=== PATIENT | male | born 1960 | race Caucasian/White ===

== ENCOUNTER → 2024-04-29 08:27 | Day surgery (SDC) | payer BC, SELFPAY ==
[2024-04-22 15:06] VITALS: BMI 31.0
--- NOTE | 2024-04-25 13:50 | HO.ANESPROP2 ---
HPI - Anesthesia Eval Consult details Narrative: Cx'd DOS for elevated blood sugar 63yo M for Left Cataract Extraction IOL Insertion No previous cataract on record PMFSH Past Medical History Medical History Diabetes Elevated cholesterol Surgical History Surgical History H/O colonoscopy Hx of hand surgery Social History Social History (Updated 04/22/24 @ 14:34 by Renate Fox RN) Are you a primary geriatric care manager to a significant other at home: No Do you presently have visiting nurse or other home services: No Patient Tobacco Use Status: Never used Tobacco Meds Allergies Allergy/AdvReac Type Severity Reaction Status Date / Time No Known Allergies Allergy Verified 04/29/24 09:21 Home Medications ?Medication ?Instructions ?Recorded ?Confirmed ?Last Taken ?Type atorvastatin 20 mg tablet 20 mg PO QAM 04/22/24 04/22/24 Unknown History insulin glargine 100 unit/mL 62 unit subcut BEDTIME 04/22/24 04/22/24 Unknown History subcutaneous solution (Lantus U-100 Insulin) insulin lispro 100 unit/mL 14 - 18 unit subcut TIDAC 04/22/24 04/22/24 Unknown History subcutaneous pen (Humalog KwikPen (U-100) Insulin) lisinopril 10 mg tablet 10 mg PO QAM 04/22/24 04/22/24 Unknown History Exam Height,Weight and Vital Signs: Height 5 ft 8 in Weight 92.6 kg Assessment and Plan Assessment Anesthesia Assessment: Chart Reviewed
[2024-04-29 09:23] LABS: Glucose, Whole Blood 396 mg/dL (60-115)
--- NOTE | 2024-04-29 09:28 | PC.NURSE ---
Dr. Sierra updated regarding patient POC and visited with patient. Decision made to give patient insulin as ordered and recheck in 30 minutes.
[2024-04-29] MEDS: Insulin Lispro 100 UNIT/ML 3 ML VIAL SUBCUT (09:38)
[2024-04-29 09:43] VITALS: BP 142/72; PULSE 104; RESP 18; TEMP 36.6; O2SAT 96
--- NOTE | 2024-04-29 10:22 | PC.NURSE ---
Insulin was given as ordered. POC recheck was completed in 30 minutes as ordered with result of 397. Dr. Sierra updated patient that procedure was cancelled for today. Patient stated that he would comply with the preop instructions as given for next cataract surgery.
[2024-04-29 10:31] LABS: Glucose, Whole Blood 397 mg/dL (60-115)
== END ==
LOC: HO.SSS 08:28
PROVIDERS: PCP Internal Medicine Endocrinology, Diabetes & Metabolism; Visit Provider Ophthalmology
DX: H25.12 Age-related nuclear cataract, left eye (principal); Z53.09 Procedure and treatment not carried out because of other contraindication; E11.9 Type 2 diabetes mellitus without complications; Z79.4 Long term (current) use of insulin
CPT/HCPCS: 82947; J3301

== ENCOUNTER 2024-06-24 07:04 | Day surgery (SDC) | payer BC, SELFPAY ==
--- OUTSIDE RECORDS SUMMARY | 2024-05-21 12:49 | XMS_ITS | Continuity of Care Document ---
Author Organization [facility] [address] [facility] [address] [place] [address] Phone [phone] Care Team Providers Care Inside Channel Account Manager Name Role Phone Melyssa Maki Care Team Information Receive r [phone] Problems Active Problems Provider Date Diabetes mellitus Andres Eng M.D. Onset: 0 02/02/2022 Hypertriglyceridemia Andres Eng M.D. Onset : 02/02/2022 Essential hypertension Andres Eng M.D. Ons et: 05/31/2022 Hypercholesterolemia Andres Eng M.D. Onset : 03/08/2023 Social History Type Date Description Comments Sex Unknown ETOH Use Denies alcohol use Tobacco Use Start: Unknown Patient has never smoked Smoking Status Reviewed: 10/14/22 Patient has never sm oked Allergies and adverse reactions Description No Known Drug Allergies Medications Active Medications SIG Qnty Indications Order ing Provider Date Dexcom G6 Mis SensorSensor Apply 1 Sensor To Skin Every 10 Days 9units Bev Mathis M.D. [address] 1 tab by mouth every day 90tabs Andres Eng M.D. 4 Dexcom G6 Mis TransmitTransmit Use as Directed 1units Bev Mathis M.D. 3 Dexcom G6 TransmitterMisc Use as Directed 1units E10.9 Andres Eng M.D. 2 Dexcom G6 SensorMisc 1 sensor to skin every ten days 9units E10.9 Bev Mathis M.D. 2 Dexcom G6 ReceiverDevice use as directed 1units E10.9 Andres Eng M.D. 2 Lebxhh348Vuuv/ML Solution Inject 64 Units Subcutaneously AT Bedtime 60units E10.9 Bev Mathis M.D. 0 Latanoprost0.005% Solution Unknown 0 BD Insulin Syringe Ultra-Fine/1ML/31G X 8mm31G X 5/16 1 ML Misc use 1 syringe daily for injecting insulin 90units E11.9 Bev Mathis M.D. 0 Humalog [id number]/ML Solution Pen-Inject Inject 60 Units Subcutaneously Daily as Directed By Your Doctor 60units E10.9 Bev Mathis M.D. 0 Onetouch VerioStrips Use 1 Strip Four Times A Day 400units Bev Mathis M.D. 0 [id number] Tablets take one tablet b y mouth daily 90tabs Bev Mathis M.D. 0 Atorvastatin [id number] Tablets Take 1 Tablet By Mouth Daily 90tabs Bev Mathis M.D. 0 Triamcinolone Acetonide0.1% Ointment Philip Davenport 0 Vital Signs Date Vital Result Comment 04/12/2024 8:43am BP Systolic 130 mmHg BP Diastolic 80 mmHg Heart Rate 90 /min Height 68 inches 5'8 Weight 200.25 lb BMI (Body Mass Index) 30.4 kg/m2 Results Test Acquired Date Facility Test Result H/L Range Note Laboratory test finding 04/12/2024 Inhouse Glucose Fingerstick 101 Hemoglobin A1c 6.6% Comp. Metabolic Panel (14) 03/23/2024 [facility] Glucose 208 mg/dL High 70-99 BUN 9 mg/dL 8-27 Creatinine 0.92 mg/dL 0.76-1.2 7 eGFR 93 mL/min/1. 73 >59 BUN/Creatinine Ratio 10 10-24 Sodium 138 mmol/L 134-144 Potassium 5.0 mmol/L 3.5-5.2 Chloride 102 mmol/L 96-106 Carbon Dioxide, Total 22 mmol/L 20-29 Calcium 9.3 mg/dL 8.6-10.2 Protein, Total 6.5 g/dL 6.0-8.5 Albumin 4.2 g/dL 3.9-4.9 Globulin, Total 2.3 g/dL 1.5-4.5 Bilirubin, Total 0.5 mg/dL 0.0-1 .2 Alkaline Phosphatase 72 IU/L 44-121 Ast (Sgot) 16 IU/L 0-40 Alt (SGPT) 22 IU/L 0-44 Lipid Panel 03/23/2024 [facility] Cholesterol, Total 149 mg/dL 100-199 Triglycerides 87 mg/dL 0-149 HDL Cholesterol 48 mg/dL >39 VLDL Cholestero l Rupert 17 mg/dL 5-40 LDL Chol Calc (Nih) 84 mg/dL 0-99 LDL Calc Comment: TNP CBC With Differential/Plat elet 03/23/2024 [facility] WBC 4.1 x10E3/uL 3.4-10.8 RBC 4.52 x10E6/uL 4.14-5.8 0 Hemoglobin 13.7 g/dL 13.0-17. 7 Hematocrit 41.6 % 37.5-51. 0 MCV 92 fL 79-97 MCH 30.3 pg 26.6-33. 0 MCHC 32.9 g/dL 31.5-35. 7 RDW 12.7 % 11.6-15. 4 Platelets 174 x10E3/uL 150-450 Neutrophils 50 % Not Estab. Lymphs 33 % Not Estab. Monocytes 8 % Not Estab. Eos 7 % Not Estab. Basos 2 % Not Estab. Immature Cells TNP Neutrophils (Absolute) 2.0 x10E3/uL 1.4-7.0 Lymphs (Absolute) 1.3 x10E3/uL 0.7-3.1 Monocytes(Absol u te) 0.3 x10E3/uL 0.1-0.9 Eos (Absolute) 0.3 x10E3/uL 0.0-0.4 Baso (Absolute) 0.1 x10E3/uL 0.0-0.2 Immature Granulocytes 0 % Not Estab. Immature Grans (Abs) 0.0 x10E3/uL 0.0-0.1 NRBC TNP Hematology Comments: TNP Albumin/Creatinin e Ratio, Random Urine 03/23/2024 [facility] Creatinine, Urine 71.5 mg/dL Not Estab. Albumin, Urine 11.6 ug/mL Not Estab. Alb/Creat Ratio 16 mg/gcreat 0-29 1 Laboratory test finding 01/01/2024 Inhouse Glucose Fingerstick 136 Hemoglobin A1c 6.3% Laboratory test finding 08/23/2023 Inhouse Glucose Fingerstick 189 Hemoglobin A1c 6.2% Laboratory test finding 03/08/2023 Inhouse Glucose Fingerstick 197 Lipid Panel 02/26/2023 [facility] Cholesterol, Total 158 mg/dL (<200) Triglyceride 223 mg/dL High (<150) HDL Chol 39 mg/dL Low (>39) LDL Cholesterol , Calculated 74 mg/dL (0-130) Non HDL Cholesterol (Calc) 119 mg/dL (<160) Urinary Microalbumin 02/26/2023 [facility] Micro-Albumin 14.0 mg/L (<20) 2 Malb/Creat Ratio 12.0 MG/GM (0-20) Urine Creat For Micro Albumin 116.7 mg/dL Laboratory test finding 02/26/2023 [facility] PSA 0.9 NG/ML (0-4) 3 Hemoglobin A1c 6.8 % High (4.0-5.6 ) 4 Comprehensive Metabolic Panl 02/26/2023 [facility] Glucose 125 mg/dL High (70-99) BUN 10 mg/dL (8-23) Creatinine 0.8 mg/dL (0.7-1.2 ) Sodium 142 mmol/L (133-145 ) Potassium 4.7 mmol/L (3.6-5.2 ) Chloride 106 mmol/L (98-107) Bicarbonate 25 mmol/L (22-29) Anion Gap 11 (4-17) Albumin 4.4 GM/DL (3.4-4.8 ) Calcium 9.0 mg/dL (8.6-10. 5) Bilirubin,Total 0.3 mg/dL (0-1.2 ) Total Protein 6.5 GM/DL (6.2-8.2 ) Ag Ratio 2.1 Ast 18 U/L (0-40) Alk Phos 91 U/L (40-129) Alt 21 U/L (0-41) Estimated GFR Creatinine 100 ML/MIN/1. 73M2 5 Complete Abc With Diff 02/26/2023 [facility] WBC 5.3 K/MM3 (4.0-11. 0) RBC 4.37 M/MM3 Low (4.70-6. 10) HGB 13.3 GM/DL Low (13.7-17 .1) HCT 39.1 % Low (40.5-50 .0) MCV 89.5 FL (80.0-94 .0) MCH 30.4 pg (27.0-34 .0) MCHC 34.0 g/dL (33.0-37 .0) PLT 192 K/MM3 (150-460 ) RDW-SD 40.6 FL (<47.0) MPV 10.5 FL (9.4-12. 4) Automated NRBC 0.0 #/100WBC' S Abs. NRBC 0.0 K/MM3 Neut # 3.1 K/MM3 (1.3-7.0 ) Lymph # 1.4 K/MM3 (0.8-3.1 ) Jackson# 0.4 K/MM3 (0.4-1.3 ) Eo # 0.3 K/MM3 (0.0-0.4 ) Baso # 0.1 K/MM3 (0.0-0.1 ) Abs. Imm Gran 0.0 K/MM3 Neut 59.4 % (44-76) Lymph 26.1 % (15-43) Monocyte 8.1 % (4.5-10. 5) Eo 5.1 % (0-6) Baso 0.9 % (0-2) Imm Gran 0.4 % Laboratory test finding 10/14/2022 Inhouse Glucose Fingerstick 100 Hemoglobin A1c 6.0% Fingerstick Glucose 05/31/2022 Inhouse Z#Other Observations 223 Laboratory test finding 02/02/2022 Inhouse Glucose Fingerstick 6.4% Hemoglobin A1c 175 Urinary Microalbumin 01/22/2022 [facility] Micro-Albumin <12.0 mg/L (<20) 6 Malb/Creat Ratio Unable t o calcul <SEE NOTE> MG/GM (0-20) 7 Urine Creat For Micro Albumin 101.6 mg/dL Complete Abc With Diff 01/22/2022 [facility] WBC 5.7 K/MM3 (4.0-11. 0) RBC 4.32 M/MM3 Low (4.70-6. 10) HGB 13.1 GM/DL Low (13.7-17 .1) HCT 38.3 % Low (40.5-50 .0) MCV 88.7 FL (80.0-94 .0) MCH 30.3 pg (27.0-34 .0) MCHC 34.2 g/dL (33.0-37 .0) PLT 180 K/MM3 (150-460 ) RDW-SD 39.4 FL (<47.0) MPV 10.4 FL (9.4-12. 4) Automated NRBC 0.0 #/100WBC' S Abs. NRBC 0.0 K/MM3 Neut # 3.6 K/MM3 (1.3-7.0 ) Lymph # 1.3 K/MM3 (0.8-3.1 ) Jackson# 0.4 K/MM3 (0.4-1.3 ) Eo # 0.3 K/MM3 (0.0-0.4 ) Baso # 0.1 K/MM3 (0.0-0.1 ) Abs. Imm Gran 0.0 K/MM3 Neut 63.7 % (44-76) Lymph 22.9 % (15-43) Monocyte 7.1 % (4.5-10. 5) Eo 4.8 % (0-6) Baso 1.1 % (0-2) Imm Gran 0.4 % Comprehensive Metabolic Panl 01/22/2022 [facility] Glucose 67 mg/dL Low (70-99) 8 BUN 12 mg/dL (8-23) Creatinine 0.9 mg/dL (0.7-1.2 ) Sodium 140 mmol/L (133-145 ) Potassium 4.7 mmol/L (3.6-5.2 ) Chloride 105 mmol/L (98-107) Bicarbonate 24 mmol/L (22-29) Anion Gap 11 (4-17) Albumin 4.5 GM/DL (3.4-4.8 ) Calcium 9.0 mg/dL (8.6-10. 5) Bilirubin,Total 0.3 mg/dL (0-1.2 ) Total Protein 6.6 GM/DL (6.2-8.2 ) Ag Ratio 2.1 Ast 14 U/L (0-40) Alk Phos 77 U/L (40-129) Alt 19 U/L (0-41) Estimated GFR Creatinine 98 ML/MIN/1. 73M2 Lipid Panel 01/22/2022 [facility] Cholesterol, Total 152 mg/dL (<200) Triglyceride 318 mg/dL High (<150) 9 HDL Chol 34 mg/dL Low (>39) LDL Cholesterol , Calculated 54 mg/dL (0-130) Non HDL Cholesterol (Calc) 118 mg/dL (<160) Laboratory test finding 01/22/2022 [facility] PSA Screen 0.6 NG/ML (0-4) 10 TSH 1.05 uIU/mL (0.4-4.2 ) 1 Normal: 0 - 29 Moderately increased: 30 - 300 Severely increased: >300 2 The urine microalbum in test is designed to monitor renal function. When screening for Bence Mercado proteinuria, urine electrophoresis is recommended. 3 TEST PERFORMED USING THE JAYDON ELECTROCHEMILLUMINESCENCE TOTAL PSA ASSAY. PSA VALUES OBTAINED WITH OTHER ASSAY METHODS OR KITS CANNOT BE USED INTERCHANGEABLY. 4 MONITORING: In known diabetic patients, hemoglobin A1c targets should be discussed with health care provider. DIAGNOSTIC USE: The [place] Diabetes Association (ADA) and the World Health Organization (WHO) recommend the use of HbA1c to diagnose diabetes using a threshold of 6.5%. Patients who have an HbA1c between 5.7% and 6.4% are considered at increased risk for developing diabetes in the future. CAUTION: Falsely low HbA1c results may be observed in patients with hemolytic anemia, homozygous forms of abnormal hemoglobin (e.g. SS, CC, SC), , recent blood loss or hemoglobin F greater than 7%. Fructosamine may be used as an alternate test in these cases. REFERENCE: ADA: Standards of Medical Care in Diabetes 2020, The Journal of Clinical and Applied Research and Education Volume 43, Supplement 1 5 Creatinine based est imated glomerular filtration (eGFR) in adults is calculated using the National Kidney Foundation recommended 2020 CKD-EPI equation. Estimates GFR from serum creatinine, age and sex. 6 The urine microalbum in test is designed to monitor renal function. When screening for Bence Mercado proteinuria, urine electrophoresis is recommended. 7 Unable to calculate 8 Fasting 9 Fasting 10 TEST PERFORMED USING THE JAYDON ELECTROCHEMILLUMINESCENCE TOTAL PSA ASSAY. PSA VALUES OBTAINED WITH OTHER ASSAY METHODS OR KITS CANNOT BE USED INTERCHANGEABLY. Medical Devices Description No Information Available Encounters Type Date Location Provider Dx Diagnosis Office Visit 04/12/2024 8:30a Main Office [facility] E10.9 Type 1 diabet es mellitus without complications E78.00 Pure hypercholestero lemia, unspecified Assessments Date Code Description Provider 04/12/2024 E10.9 Type 1 diabetes mellitus wit hout complications [facility] 04/12/2024 E78.00 Hypercholesterolemia [facility] Plan of Treatment Future Appointment(s):* 08/12/2024 8:30 am - [facility] at Main Office 01/01/2024 - [facility]* E10.9 Type 1 diabetes mellitus without complications * E78.00 Hypercholesterolemia Functional Status Description No Information Available Mental Status Description No Information Available Referrals Refer to Reason for Referral Status Appt [facility] Philip Everett Closed [address] [place] [address] [phone] [facility] Closed [address] [facility], [address] [place] [address] [phone] Kavita Finley M.D Closed [address] [place] [address] [phone] Gregory Kirby MD INGROWING NAIL Closed [address] [facility] [address] [place] [address] [phone] Kavita Finley M.D Closed [address] [place] [address] [phone] Andres Eng M.D. Closed [address] [place] [id number] [phone]
--- OUTSIDE RECORDS SUMMARY | 2024-05-21 12:49 | XMS_ITS | Continuity of Care Document ---
Author Organization [facility] Address [address] [place] [address]- Care Team Providers Care Grinder Operator Tool Name Role Phone Albertina CID, Andres Metcalf Primary Care Physician [id number] Date(s): 04/16/24 - 04/23/24 [facility] [address] [place], [place] [address] Attending Physician: Jose D Gregory MD Referring Physician: Tushar Wlals MD Encounter Type: Office Visit Allergies, Adverse Reactions, Alerts No Known Medication Allergies Immunizations Given and Recorded Vaccine Date Status Refusal Reason tetanus/diphtheria/pertussis, acel(Tdap) 09/05/15 Given Medications atorvastatin 20 mg oral tablet 1 tablet = 20 mg, By Mouth, Daily, # 30 tablet, 0 Refills, Maintenance, 04/16/24 9:10:00 AM EST, Tablet, Partial fill upon patient request if the prescription is for a schedule II opioid drug. Start Date: 04/16/24 Status: Ordered Quantity: 30.0 Unit: tablet Repeat number: 1 Humalog Kwik Pen 100 units/mL subcutaneous injection 0 Refills, Maintenance, 04/16/24 9:10:00 AM EST, Partial fill upon patient request if the prescription is for a schedule II opioid drug. Start Date: 04/16/24 Status: Ordered Repeat number: 1 Lantus 100 u/ml subcutaneous solution = 62 units, Daily at bedtime, 0 Refills, Maintenance, 04/16/24 9:09:00 AM EST, Partial fill upon patient request if the prescription is for a schedule II opioid drug. Start Date: 04/16/24 Status: Ordered Repeat number: 1 lisinopril 10 mg oral tablet 10 mg, 1, tablet, By Mouth, Daily, # 30 tablet, Refills 0, Maintenance, 04/16/24 9:09:00 AM EST, Partial fill upon patient request if the prescription is for a schedule II opioid drug. Start Date: 04/16/24 Status: Ordered Quantity: 30.0 Unit: tablet Repeat number: 1 Misc Rx Fruits and Vege tabs, Refills 0, Maintenance, 04/16/24 9:10:00 AM EST, Supply Start Date: 04/16/24 Status: Ordered Repeat number: 1 Problem List Condition Confirmation Course Effective Dates Status Health St atus Informant Diabetes Confirmed Active Procedures Procedure Date Related Diagnosis Body Site Status left hand surgery as a child. Completed Vital Signs Most recent to oldest [Reference Range]: 1 Weight 92.6 kg (04/16/24 8:58 AM) Oxygen Saturation [94-100 %] 100 % (04/16/24 8:58 AM) Pulse Rate [55-90 bpm] 79 bpm (04/16/24 8:58 AM) Blood Pressure [90-138/55-84 mm Hg] 141/ 72mm Hg *H* (04/16/24 8:58 AM) Respiratory Rate [16-30 br/min] 14 br/mi n *L* (04/16/24 8:58 AM) Mode of Delivery (Oxygen) Room air (04/16/24 8:58 AM) Blood pressure sites Arm, right (04/16/24 8:58 AM) Dry Weight 92.6 kg (04/16/24 8:58 AM) Weight Obtained Via Standing scale (04/16/24 8:58 AM) Dry Weight Obtained Via Standing scale (04/16/24 8:58 AM) Social History Social History Type Response Smoking Status Never (less than 100 in lifetime) entered on: 04/16/24 Sex Sex Representation Male (finding) Patient Care team information Care Team Personnel Name: Andres Eng MD Position: S Outreach Member Role: PCP Address: [address] [place] [address] [facility] [address] Telecom: Care Team Related Persons Name: ROSE ALONSO
[2024-06-18 08:46] VITALS: BMI 30.6
--- NOTE | 2024-06-20 14:40 | P.CONAN_ITS ---
Documented by User: Frida Mendoza NP 06/21/24 11:04 HPI - Anesthesia Eval Consult details Narrative: 67yo M for Right Cataract Extraction IOL Insertion No previous cataract on record Previous cx'd DOS for elevated blood sugar. Optimized per [facility] preop clinic [facility] Past Medical History Medical History Diabetes Elevated cholesterol Surgical History Surgical History H/O colonoscopy Hx of hand surgery Social History Social History Are you a primary before and after school daycare worker to a significant other at home: No Do you presently have visiting nurse or other home services: No Patient Tobacco Use Status: Never used Tobacco Use of substances other than those prescribed or required for medical reasons: No Have you been hit, kicked, punched, or otherwise hurt by someone within the past year? If so, by whom?: No Spiritual Healthcare Practices: none Shinto Healthcare Practices: Judaism Cultural Healthcare Practices: none Are you DNR?: No Advance Directives: No (spouse primary contact) Advance Directives Information Provided: Yes (as above noted) Advance Directives on File: No Recently lost weight without trying: No Eating poorly because of decreased appetite: No Nutrition Risks: No Nutritional Risk Poor oral hygiene: No Meds Allergies Allergy/AdvReac Type Severity Reaction Status Date / Time No Known Allergies Allergy Verified 04/29/24 09:21 Home Medications ?Medication ?Instructions ?Recorded ?Confirmed ?Last Taken ?Type atorvastatin 20 mg tablet 20 mg PO QAM 04/22/24 06/18/24 Unknown History insulin glargine 100 unit/mL 62 unit subcut BEDTIME 04/22/24 06/18/24 06/23/24 22:00 History subcutaneous solution (Lantus U-100 Insulin) insulin lispro 100 unit/mL 14 - 18 unit subcut TIDAC 04/22/24 06/18/24 Unknown History subcutaneous pen (Humalog KwikPen (U-100) Insulin) lisinopril 10 mg tablet 10 mg PO QAM 04/22/24 06/18/24 Unknown History timolol maleate 0.5 % eye drops drp ophthalmic (eye) 06/21/24 06/21/24 Unknown History Exam Height,Weight and Vital Signs: Height 5 ft 8.5 in Weight 92.7 kg Assessment and Plan Assessment Anesthesia Assessment: Chart Reviewed Documented by User: Lola Alfaro MD 06/24/24 09:37 [facility] Past Medical History Medical History Diabetes Elevated cholesterol Family History Family history of problems with anesthesia: No Surgical History Surgical History (Reviewed 06/24/24 @ : by Lola Alfaro MD) H/O colonoscopy Hx of hand surgery History of Problems with Anesthesia: No Social History Social History Are you a primary before and after school daycare worker to a significant other at home: No Do you presently have visiting nurse or other home services: No Patient Tobacco Use Status: Never used Tobacco Use of substances other than those prescribed or required for medical reasons: No Have you been hit, kicked, punched, or otherwise hurt by someone within the past year? If so, by whom?: No Spiritual Healthcare Practices: none Shinto Healthcare Practices: Judaism Cultural Healthcare Practices: none Are you DNR?: No Advance Directives: No (spouse primary contact) Advance Directives Information Provided: Yes (as above noted) Advance Directives on File: No Recently lost weight without trying: No Eating poorly because of decreased appetite: No Nutrition Risks: No Nutritional Risk Poor oral hygiene: No Meds Allergies Allergy/AdvReac Type Severity Reaction Status Date / Time No Known Allergies Allergy Verified 04/29/24 09:21 Home Medications ?Medication ?Instructions ?Recorded ?Confirmed ?Last Taken ?Type atorvastatin 20 mg tablet 20 mg PO QAM 04/22/24 06/18/24 Unknown History insulin glargine 100 unit/mL 62 unit subcut BEDTIME 04/22/24 06/18/24 06/23/24 22:00 History subcutaneous solution (Lantus U-100 Insulin) insulin lispro 100 unit/mL 14 - 18 unit subcut TIDAC 04/22/24 06/18/24 Unknown History subcutaneous pen (Humalog KwikPen (U-100) Insulin) lisinopril 10 mg tablet 10 mg PO QAM 04/22/24 06/18/24 Unknown History timolol maleate 0.5 % eye drops drp ophthalmic (eye) 06/21/24 06/21/24 Unknown History Exam Height,Weight and Vital Signs: Height 5 ft 8.5 in Weight 92.7 kg Vital Signs Temp Pulse Resp BP Pulse Ox O2 Del Method 06/24/24 08:47 98.2 F 85 16 141/66 H 99 Room Air Pertinent Lab Results Pertinent Lab Results: Lab Results 06/24/24 Range/Units 08:42 POC Glucose 233 H (60-115) mg/dL Airway Mallampati Class: III TM Dist: >3cm Neck ROM: Full Loose/Missing/Broken Teeth: No Heart: RRR+ murmur Lungs: CTAB Assessment and Plan Assessment Anesthesia Assessment: Anesthesia Plan Discussed and Chart Reviewed Final Anesthetic Review Family History of Problems with Anesthesia: No History of Problems with Anesthesia: No NPO: Yes ASA Class: III Final Preanesthetic Review: No Changes in Pt Med Stat, Meds/Allgs Chart Reviewed, Consent Obtained/Reviewed and Anes Risks/Benef Reviewed Patient Risk: Intermediate Procedure Risk: Low Assessment/Block/Sedation in SS: Assess/Block/Sedation-SS Anesthetic Plan Anesthetic Plan: MAC: Disposition: Standard PACU
[2024-06-24 08:46] LABS: Glucose, Whole Blood 233 mg/dL (60-115)
[2024-06-24 08:47] VITALS: BP 141/66; PULSE 85; RESP 16; TEMP 36.8; O2SAT 99; BMI 30.1
[2024-06-24] MEDS: Tetracaine HCl/PF 0.5% Oph Sol 4 ML DROPS 1 DROP EYE-RIGHT (08:50)
[2024-06-24] MEDS: Cyclopentolate 1 % Ophth Sol 2 ML DRPBTL 1 DROP EYE-RIGHT ×3 (08:53→09:12)
[2024-06-24] MEDS: Tropicamide 1 % Ophth Sol 3 ML BTL 1 DROP EYE-RIGHT ×3 (08:57→09:13)
[2024-06-24] MEDS: Lactated Ringers 500 ML 50 ML IV (08:58)
[2024-06-24] MEDS: Ketorolac Tromethamine 0.5% Op 10 ML DROPS 1 DROP EYE-RIGHT ×3 (08:59→09:14)
[2024-06-24] MEDS: Phenylephrine HCL 2.5% Oph SoL 2 ML BOTTLE 1 DROP EYE-RIGHT ×3 (09:01→09:16)
--- NOTE | 2024-06-24 09:31 | MHC.SHP ---
Pre-Procedural Eval Section A - 24 Hr Update-Section A only Date of Service: 06/24/24 The patient is an INPATIENT: No Changes since office visit: No Cold of Flu in the past 2 weeks, No New Medical Problems, No Changes in Medication and No Patient answered all questions The patient has been examined within 24 hours of the surgical procedure. The History & Physical has been completed within 30 days and I have reviewed it.: Yes Section B - Complete if H&P > 30 days Chief Complaint: Age-related nuclear cataract, right eye Allergies: Allergies Allergy/AdvReac Type Severity Reaction Status Date / Time No Known Allergies Allergy Verified 04/29/24 09:21 Plan Diagnosis/Plan: Unchanged I have reviewed the history and physical and performed a pertinent physical examination on my patient. No changes have occurred unless specified. Time Spent With Patient Time: Total time managing care of this patient today ____ minutes.
--- NOTE | 2024-06-24 09:31 | HO.PNOPHT ---
Ophthalmology Procedure Procedure Date of Service: 06/24/24 Ophthalmology Viscoelastic: Healon Duet Dual Pack Pro Ophthalmology Lenses: IOL Acrysof MP - MA60AC (24) Procedure Notes: PREOPERATIVE DIAGNOSIS: Decreased visual acuity right eye secondary to cataract POSTOPERATIVE DIAGNOSIS: Same PROCEDURE: Right cataract extraction with intraocular lens insertion SURGEON: Tushar Walls M.D. ANESTHESIA: Topical/MAC ESTIMATED BLOOD LOSS: None COMPLICATIONS: Zonular weakness After obtaining informed consent, the patient was brought to the operating room suite and placed in the supine position. After adequate sedation per anesthesia, topical drops of Tetracaine were given to the right eye. The eye was then prepped and draped in the usual sterile fashion. The operating room microscope was then positioned over the operative eye and a lid speculum placed. A paracentesis was created. Viscoelastic was then instilled into the anterior chamber. A three plane incision was then created temporally, utilizing a 2.85 mm keratome. Capsulotomy forceps were then utilized to create a circular tear capsulotomy. Hydrodissection and hydrodelineation were carried out until adequate mobilization of the nucleus occurred. Phacoemulsification was then utilized to remove the dense central nucleus .Zonular wweakness was noted requiring placement of a capular tension ring. Followed by removal of the cortical material utilizing the automated aspiration irrigation unit. Viscoelastic was instilled into the posterior capsular bag followed by placement of a posterior chamber intraocular lens without difficulty. The residual Viscoelastic was then removed utilizing the automated IA machine. The wound was checked and found to be watertight. The patient tolerated the procedure well and the lid speculum was removed. Intracameral injection of Vigamox 0.1 mL followed by a subtenon injection of Kenalog-40 0.2 mL were administered. The patient will be seen in the a.m.
[2024-06-24 10:04] VITALS: BP 135/71; PULSE 77; RESP 16; TEMP 36.6; O2SAT 98
== END 2024-06-24 10:12 | disposition home or self-care (01) ==
PROVIDERS: PCP Internal Medicine Endocrinology, Diabetes & Metabolism; Visit Provider Ophthalmology
PROC: (CPT 66985; principal; 2024-06-24 09:30)
DX: H25.11 Age-related nuclear cataract, right eye (principal); H27.8 Other specified disorders of lens; Y83.8 Other surgical procedures as the cause of abnormal reaction of the patient, or of later complication, without mention of misadventure at the time of the procedure; Y77.3 Surgical instruments, materials and ophthalmic devices (including sutures) associated with adverse incidents; Y92.234 Operating room of hospital as the place of occurrence of the external cause; H54.7 Unspecified visual loss; Z83.511 Family history of glaucoma; E10.9 Type 1 diabetes mellitus without complications; E78.00 Pure hypercholesterolemia, unspecified; Z79.4 Long term (current) use of insulin; Z79.899 Other long term (current) drug therapy
CPT/HCPCS: 66982; 82947; J2250; J3010; J3301; V2630

== ENCOUNTER 2024-07-08 07:43 | Day surgery (SDC) | payer BC, SELFPAY ==
[2024-06-18 08:50] VITALS: BMI 30.6
--- NOTE | 2024-07-04 13:42 | HO.ANESPROP2 ---
Documented by User: Frida Mendoza NP 07/04/24 13:43 HPI - Anesthesia Eval Consult details Narrative: 64yo M for Left Cataract Extraction IOL Insertion Right eye 06/24/24: Fent 50, Midaz 2 PMFSH Past Medical History Medical History Diabetes Elevated cholesterol Family History Family history of problems with anesthesia: No Surgical History Surgical History H/O colonoscopy Hx of hand surgery History of Problems with Anesthesia: No Social History Social History Are you a primary child care lead teacher to a significant other at home: No Do you presently have visiting nurse or other home services: No Patient Tobacco Use Status: Never used Tobacco Use of substances other than those prescribed or required for medical reasons: No Have you been hit, kicked, punched, or otherwise hurt by someone within the past year? If so, by whom?: No Spiritual Healthcare Practices: none Religion Healthcare Practices: Gnosticism Cultural Healthcare Practices: none Are you DNR?: No Advance Directives: No (spouse primary contact) Advance Directives Information Provided: Yes (as above noted) Advance Directives on File: No Recently lost weight without trying: No Eating poorly because of decreased appetite: No Nutrition Risks: No Nutritional Risk Poor oral hygiene: No Meds Allergies Allergy/AdvReac Type Severity Reaction Status Date / Time No Known Allergies Allergy Verified 07/08/24 08:22 Home Medications ?Medication ?Instructions ?Recorded ?Confirmed ?Last Taken ?Type atorvastatin 20 mg tablet 20 mg PO QAM 04/22/24 06/18/24 Unknown History insulin glargine 100 unit/mL 62 unit subcut BEDTIME 04/22/24 06/18/24 06/23/24 22:00 History subcutaneous solution (Lantus U-100 Insulin) insulin lispro 100 unit/mL 14 - 18 unit subcut TIDAC 04/22/24 06/18/24 Unknown History subcutaneous pen (Humalog KwikPen (U-100) Insulin) lisinopril 10 mg tablet 10 mg PO QAM 04/22/24 06/18/24 Unknown History timolol maleate 0.5 % eye drops drp ophthalmic (eye) 06/21/24 06/21/24 Unknown History Exam Height,Weight and Vital Signs: Height 5 ft 8.5 in Weight 92.7 kg Assessment and Plan Assessment Anesthesia Assessment: Chart Reviewed Final Anesthetic Review Family History of Problems with Anesthesia: No History of Problems with Anesthesia: No Documented by User: Rae Rios MD 07/08/24 08:34 PMFSH Past Medical History Medical History Diabetes Elevated cholesterol Surgical History Surgical History H/O colonoscopy Hx of hand surgery Social History Social History Are you a primary child care lead teacher to a significant other at home: No Do you presently have visiting nurse or other home services: No Patient Tobacco Use Status: Never used Tobacco Use of substances other than those prescribed or required for medical reasons: No Have you been hit, kicked, punched, or otherwise hurt by someone within the past year? If so, by whom?: No Spiritual Healthcare Practices: none Religion Healthcare Practices: Gnosticism Cultural Healthcare Practices: none Are you DNR?: No Advance Directives: No (spouse primary contact) Advance Directives Information Provided: Yes (as above noted) Advance Directives on File: No Recently lost weight without trying: No Eating poorly because of decreased appetite: No Nutrition Risks: No Nutritional Risk Poor oral hygiene: No Meds Allergies Allergy/AdvReac Type Severity Reaction Status Date / Time No Known Allergies Allergy Verified 07/08/24 08:22 Home Medications ?Medication ?Instructions ?Recorded ?Confirmed ?Last Taken ?Type atorvastatin 20 mg tablet 20 mg PO QAM 04/22/24 06/18/24 Unknown History insulin glargine 100 unit/mL 62 unit subcut BEDTIME 04/22/24 06/18/24 06/23/24 22:00 History subcutaneous solution (Lantus U-100 Insulin) insulin lispro 100 unit/mL 14 - 18 unit subcut TIDAC 04/22/24 06/18/24 Unknown History subcutaneous pen (Humalog KwikPen (U-100) Insulin) lisinopril 10 mg tablet 10 mg PO QAM 04/22/24 06/18/24 Unknown History timolol maleate 0.5 % eye drops drp ophthalmic (eye) 06/21/24 06/21/24 Unknown History Exam Airway Mallampati Class: II TM Dist: >3cm Neck ROM: Full Heart: rrr Lungs: cta Assessment and Plan Assessment Anesthesia Assessment: Anesthesia Plan Discussed Final Anesthetic Review NPO: Yes ASA Class: III Final Preanesthetic Review: No Changes in Pt Med Stat, Meds/Allgs Chart Reviewed and Consent Obtained/Reviewed Patient Risk: Low Procedure Risk: Low Anesthetic Plan Anesthetic Plan: MAC: Disposition: Standard PACU
--- OUTSIDE RECORDS SUMMARY | 2024-07-08 07:46 | XMS_ITS | Continuity of Care Document ---
Author Organization [facility] Address [address] [place] [address]- Care Team Providers Care Roll Forming Machine Operator Name Role Phone Not on Staff, PCP Primary Care Physician Unavail able [place] [facility] [place]13[place] 06/20/24 [facility] [address], [place] [address] Attending Physician: Jose D Gregory MD Referring Physician: Tushar Walls MD Encounter Type: Office Visit Allergies, Adverse [...] Quantity: 30.0 Unit: tablet Repeat number: 1 Problem List Condition Confirmation Course Effective Dates Status Health St atus Informant Obese class I Confirmed Active Type 1 diabetes Confirmed Active Vital Signs Most recent to oldest [Reference Range]: 1 Height 174 cm (06/13/24 11:37 AM) Weight 92.7 kg (06/13/24 11:37 AM) Oxygen Saturation [94-100 %] 100 % (06/13/24 11:37 AM) Pulse Rate [55-90 bpm] 94 bpm *H* (06/13/24 11:37 AM) Body Mass Index [18.5-24.99 kg/m2] 30.62 kg/m2 *>HHI* (06/13/24 11:37 AM) Blood Pressure [90-138/55-84 mm Hg] 141/ 70mm Hg *H* (06/13/24 11:37 AM) Respiratory Rate [16-30 br/min] 24 br/mi n (06/13/24 11:37 AM) Mode of Delivery (Oxygen) Room air (06/13/24 11:37 AM) Blood pressure sites Arm, left (06/13/24 11:37 AM) Weight Obtained Via Standing scale (06/13/24 11:37 AM) Social History Social History Type Response Smoking Status Never (less than 100 in lifetime) entered on: 04/16/24 Sex Sex Representation Male (finding) Patient Care team information Care Team Personnel Name: Not on Staff, PCP Position: S Physician (General Medicine) Member Role: PCP Care Team Related Persons Name: ROSE ALONSO Insurance Providers Guarantor name: JUSTUS ALONSO Health Plan Information #: 1 Payer: [employer] Member Number: [id number] Policy Number: NA Group Number: NA Health Plan Information #: 2 Payer: [employer] Member Number: [id number] Policy Number: NA Group Number: [id number]
[2024-07-08] MEDS: Lactated Ringers 500 ML 50 ML IV (08:01)
[2024-07-08] MEDS: Tetracaine HCl/PF 0.5% Oph Sol 4 ML DROPS 1 DROP EYE-LEFT (08:01)
[2024-07-08] MEDS: Cyclopentolate 1 % Ophth Sol 2 ML DRPBTL 1 DROP EYE-LEFT ×3 (08:02→08:09)
[2024-07-08] MEDS: Tropicamide 1 % Ophth Sol 3 ML BTL 1 DROP EYE-LEFT ×3 (08:02→08:09)
[2024-07-08] MEDS: Ketorolac Tromethamine 0.5% Op 10 ML DROPS 1 DROP EYE-LEFT ×3 (08:02→08:09)
[2024-07-08] MEDS: Phenylephrine HCL 2.5% Oph SoL 2 ML BOTTLE 1 DROP EYE-LEFT ×3 (08:02→08:09)
[2024-07-08 08:14] LABS: Glucose, Whole Blood 158 mg/dL (60-115)
[2024-07-08 08:20] VITALS: BP 130/76; PULSE 77; RESP 18; TEMP 36.6; O2SAT 98
--- NOTE | 2024-07-08 08:55 | MHC.SHP ---
Pre-Procedural Eval Section A - 24 Hr Update-Section A only Date of Service: 07/08/24 The patient is an INPATIENT: No Changes since office visit: No Cold of Flu in the past 2 weeks, No New Medical Problems, No Changes in Medication and No Patient answered all questions The patient has been examined within 24 hours of the surgical procedure. The History & Physical has been completed within 30 days and I have reviewed it.: Yes Section B - Complete if H&P > 30 days Chief Complaint: Age-related nuclear cataract, left eye Allergies: Allergies Allergy/AdvReac Type Severity Reaction Status Date / Time No Known Allergies Allergy Verified 07/08/24 08:22 Plan Diagnosis/Plan: Unchanged I have reviewed the history and physical and performed a pertinent physical examination on my patient. No changes have occurred unless specified. Time Spent With Patient Time: Total time managing care of this patient today ____ minutes.
--- NOTE | 2024-07-08 08:55 | HO.PNOPHT ---
Ophthalmology Procedure Procedure Date of Service: 07/08/24 Ophthalmology Viscoelastic: Healon Duet Dual Pack Pro Ophthalmology Lenses: IOL Acrysof MP - MA60AC (24.5) Procedure Notes: PREOPERATIVE DIAGNOSIS: Decreased visual acuity left eye secondary to cataract POSTOPERATIVE DIAGNOSIS: Same PROCEDURE: Left cataract extraction with intraocular lens insertion SURGEON: Tushar Walls M.D. ANESTHESIA: Topical/MAC ESTIMATED BLOOD LOSS: None COMPLICATIONS:Zonular weakness After obtaining informed consent, the patient was brought to the operation room suite and placed in the supine position. After adequate sedation per anesthesia, topical drops of Tetracaine were given to the left eye. The eye was then prepped and draped in the usual sterile fashion. The operating room microscope was then positioned over the operative eye and a lid speculum placed. A paracentesis was created. Viscoelastic was then instilled into the anterior chamber. A three plane incision was then created temporally, utilizing a 2.85 mm keratome. Capsulotomy forceps were then utilized to create a circular tear capsulotomy. Hydrodissection and hydrodelineation were carried out until adequate mobilization of the nucleus occurred. Phacoemulsification was then utilized to remove the dense central nucleus followed by removal of the cortical material utilizing the automated aspiration irrigation unit. Zonular weakness was noted requiring placement of a capular tension ring. Viscoat elastic was instilled into the posterior capsular bag followed by placement of a posterior chamber intraocular lens into the sulcus. The residual Viscoat elastic was then removed utilizing the automated IA machine. The wound was check and found to be watertight. The patient tolerated the procedure well and the lid speculum was removed. Intracameral injection of Vigamox 0.1 mL followed by a subtenon injection of Kenalog-40 0.2 mL were administered. The patient will be seen in the a.m.
[2024-07-08 09:35] VITALS: BP 130/74; PULSE 71; RESP 15; TEMP 36.3; O2SAT 99
== END 2024-07-08 09:53 | disposition home or self-care (01) ==
PROVIDERS: PCP Internal Medicine Endocrinology, Diabetes & Metabolism; Visit Provider Ophthalmology
PROC: (CPT 66985; principal; 2024-07-08 09:30)
DX: H25.12 Age-related nuclear cataract, left eye (principal); H26.8 Other specified cataract; H57.89 Other specified disorders of eye and adnexa; H27.8 Other specified disorders of lens; Z83.511 Family history of glaucoma; H52.4 Presbyopia; H40.1131 Primary open-angle glaucoma, bilateral, mild stage; H40.213 Acute angle-closure glaucoma, bilateral; E10.9 Type 1 diabetes mellitus without complications; Z79.4 Long term (current) use of insulin; E78.00 Pure hypercholesterolemia, unspecified; Z79.899 Other long term (current) drug therapy
CPT/HCPCS: 66982; 82947; J2250; J3301; V2630

== ENCOUNTER 2024-12-09 09:39 | Outpatient (REF) | payer BC, SELFPAY ==
--- OUTSIDE RECORDS SUMMARY | 2024-12-09 10:04 | XMS_ITS | Continuity of Care Document ---
Author Organization [facility] [address] [place] [address] Phone [phone] Care Team Providers Care Resource Recovery Specialist Name Role Phone Melyssa Maki Care Team Information Receive r [phone] Problems Active Problems Provider Date Diabetes mellitus Andres Eng M.D. Onset: 0 02/02/2022 Hypertriglyceridemia Andres Eng M.D. Onset : 02/02/2022 Essential hypertension Andres Eng M.D. Ons et: 05/31/2022 Hypercholesterolemia Andres Eng M.D. Onset : 03/08/2023 Social History Type Date Description Comments Sex Male Sex Unknown ETOH Use Denies alcohol use Tobacco Use Start: Unknown Patient has never smoked Smoking Status Reviewed: 08/12/24 Patient has never sm oked Allergies and adverse reactions Description No Known Drug Allergies Medications Active Medications SIG Qnty Indications Order ing Provider Date Dexcom G7 ReceiverDevice use for sugar reading dx e11.9 1units Bev Mathis M.D. 5 Dexcom G7 SensorMisc one to skin every 1 0 days use to check sugar dx e11.9 9units E10.9 Bev Mathis M.D. 5 Novolog [id number]/ML Solution Pen-Inject inject 60 units daily as directed by physician 60ml E10.9 Bev Mathis M.D. 5 Dexcom G6 Mis SensorSensor Apply 1 Sensor To Skin Every 10 Days 9units Bev Mathis M.D. [address] 1 tab by mouth every day 90tabs Andres Eng M.D. 4 Dexcom G6 Mis TransmitTransmit Use as Directed 1units Bev Mathis M.D. 3 Dexcom G6 TransmitterMisc Use as Directed 1units E10.9 Andres Eng M.D. 2 Dexcom G6 ReceiverDevice use as directed 1units E10.9 Andres Eng M.D. 2 Kxvqqe685Dlua/ML Solution Inject 64 Units Subcutaneously AT Bedtime 60units E10.9 Bev Mathis M.D. 0 Latanoprost0.005% Solution Unknown 0 BD Insulin Syringe Ultra-Fine/1ML/31G X 8mm31G X 5/16 1 ML Misc use 1 syringe daily for injecting insulin 90units E11.9 Bev Mathis M.D. 0 Onetouch VerioStrips Use 1 Strip Four Times A Day 400units Bev Mathis M.D. 0 [id number] Tablets take one tablet b y mouth daily 90tabs Bev Mathis M.D. 0 Atorvastatin [id number] Tablets Take 1 Tablet By Mouth Daily 90tabs Bev Mathis M.D. 0 Triamcinolone Acetonide0.1% Ointment Philip Davenport 0 Vital Signs Date Vital Result Comment 11/22/2024 8:51am BP Systolic 124 mmHg BP Diastolic 58 mmHg Heart Rate 80 /min Height 68 inches 5'8 Weight 201.00 lb BMI (Body Mass Index) 30.6 kg/m2 Results Test Acquired Date Facility Test Result H/L Range Note Hemoglobin A1c 11/22/2024 [facility]house Hemoglobin A1c 6.7% Glucose Fingerstick 11/22/2024 Inhouse Glucose Fingerstick 151 Lipid Panel 11/09/2024 [facility] Cholesterol, Total 141 mg/dL 100-199 Triglycerides 97 mg/dL 0-149 HDL Cholesterol 43 mg/dL >39 VLDL Cholestero l Rupert 18 mg/dL 5-40 LDL Chol Calc (Nih) 80 mg/dL 0-99 LDL Calc Comment: TNP Basic Metabolic Panel (8) 11/09/2024 [facility] Glucose 199 mg/dL High 70-99 BUN 13 mg/dL 8-27 Creatinine 0.96 mg/dL 0.76-1.2 7 eGFR 88 mL/min/1. 73 >59 BUN/Creatinine Ratio 14 10-24 Sodium 138 mmol/L 134-144 Potassium 4.9 mmol/L 3.5-5.2 Chloride 102 mmol/L 96-106 Carbon Dioxide, Total 20 mmol/L 20-29 Calcium 9.2 mg/dL 8.6-10.2 Glucose Fingerstick 08/12/2024 [facility]house Glucose Fingerstick 116 Hemoglobin A1c 08/12/2024 Inhouse Hemoglobin A1c 6.5% Glucose Fingerstick 04/12/2024 Inhouse Glucose Fingerstick 101 Hemoglobin A1c 04/12/2024 Inhouse Hemoglobin A1c 6.6% CBC With Differential/Plat elet 03/23/2024 [facility] WBC [...] Estab. Alb/Creat Ratio 16 mg/gcreat 0-29 1 Lipid Panel 03/23/2024 [facility] Cholesterol, Total 149 mg/dL 100-199 Triglycerides 87 mg/dL 0-149 HDL Cholesterol 48 mg/dL >39 VLDL Cholestero l Rupert 17 mg/dL 5-40 LDL Chol Calc ([facility]) 84 mg/dL 0-99 LDL Calc Comment: [facility] Comp. Metabolic Panel (14) 03/23/2024 [facility] Glucose [...] IU/L 0-40 Alt (SGPT) 22 IU/L 0-44 Glucose Fingerstick 01/01/2024 Inhouse Glucose Fingerstick 136 Hemoglobin A1c 01/01/2024 Inhouse Hemoglobin A1c 6.3% Glucose Fingerstick 08/23/2023 Inhouse Glucose Fingerstick 189 Hemoglobin A1c 08/23/2023 Inhouse Hemoglobin A1c 6.2% Glucose Fingerstick 03/08/2023 Inhouse Glucose Fingerstick 197 Complete Abc With Diff 02/26/2023 [facility] WBC 5.3 K/MM3 (4.0-11. 0) [...] ) Lymph # 1.4 K/MM3 (0.8-3.1 ) Warren# 0.4 K/MM3 (0.4-1.3 ) Eo # 0.3 K/MM3 (0.0-0.4 ) Baso # 0.1 K/MM3 (0.0-0.1 ) Abs. Imm Gran 0.0 K/MM3 Neut 59.4 % (44-76) Lymph 26.1 % (15-43) Monocyte 8.1 % (4.5-10. 5) Eo 5.1 % (0-6) Baso 0.9 % (0-2) Imm Gran 0.4 % Urinary Microalbumin 02/26/2023 [facility] Micro-Albumin 14.0 mg/L (<20) 2 Malb/Creat Ratio 12.0 MG/GM (0-20) Urine Creat For Micro Albumin 116.7 mg/dL Hemoglobin A1c 02/26/2023 [facility] Hemoglobin A1c 6.8 % High (4.0-5.6 ) 3 PSA 02/26/2023 [facility] PSA 0.9 NG/ML (0-4) 4 Lipid Panel 02/26/2023 [facility] Cholesterol, Total 158 mg/dL (<200) Triglyceride 223 mg/dL High (<150) HDL Chol 39 mg/dL Low (>39) LDL Cholesterol , Calculated 74 mg/dL (0-130) Non HDL Cholesterol (Calc) 119 mg/dL (<160) Comprehensive Metabolic Panl 02/26/2023 [facility] Glucose 125 mg/dL High (70-99) [...] Estimated GFR Creatinine 100 ML/MIN/1. 73M2 5 Glucose Fingerstick 10/14/2022 Inhouse Glucose Fingerstick 100 Hemoglobin A1c 10/14/2022 Inhouse Hemoglobin A1c 6.0% Fingerstick Glucose 05/31/2022 Inhouse Z#Other Observations 223 Glucose Fingerstick 02/02/2022 Inhouse Glucose Fingerstick 6.4% Hemoglobin A1c 02/02/2022 Inhouse Hemoglobin A1c 175 Urinary Microalbumin 01/22/2022 [facility] Micro-Albumin <12.0 mg/L (<20) 6 Malb/Creat Ratio Unable t o calcul <SEE NOTE> MG/GM (0-20) 7 Urine Creat For Micro Albumin 101.6 mg/dL Complete Abc With Diff 01/22/2022 [facility] WBC 5.7 K/MM3 (4.0-11. 0) [...] ) Lymph # 1.3 K/MM3 (0.8-3.1 ) Warren# 0.4 K/MM3 (0.4-1.3 ) Eo # 0.3 K/MM3 (0.0-0.4 ) Baso # 0.1 K/MM3 (0.0-0.1 ) Abs. Imm Gran 0.0 K/MM3 Neut 63.7 % (44-76) Lymph 22.9 % (15-43) Monocyte 7.1 % (4.5-10. 5) Eo 4.8 % (0-6) Baso 1.1 % (0-2) Imm Gran 0.4 % Comprehensive Metabolic Panl 01/22/2022 [facility] Glucose 67 mg/dL Low (70-99) [...] Creatinine 98 ML/MIN/1. 73M2 Lipid Panel 01/22/2022 [facility] Cholesterol, Total 152 mg/dL (<200) Triglyceride 318 mg/dL High (<150) 9 HDL Chol 34 mg/dL Low (>39) LDL Cholesterol , Calculated 54 mg/dL (0-130) Non HDL Cholesterol (Calc) 118 mg/dL (<160) PSA Screen 01/22/2022 [facility] PSA Screen 0.6 NG/ML (0-4) 10 TSH 01/22/2022 [facility] TSH 1.05 uIU/mL (0.4-4.2 ) 1 Normal: 0 - 29 Moderately increased: 30 - 300 Severely increased: >300 2 The urine microalbum in test is designed to monitor renal function. When screening for Bence Mercado proteinuria, urine electrophoresis is recommended. 3 MONITORING: In known diabetic patients, hemoglobin A1c targets should be discussed with health care provider. DIAGNOSTIC USE: The [place] [employer] (ADA) and the World Health [...] Research and Education Volume 43, Supplement 1 4 TEST PERFORMED USING THE JAYDON ELECTROCHEMILLUMINESCENCE TOTAL PSA ASSAY. PSA VALUES OBTAINED WITH OTHER ASSAY METHODS OR KITS CANNOT BE USED INTERCHANGEABLY. 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, left eye [facility] Fall 11/22/2024 E78.00 Hypercholesterolemia [facility] Fall 11/22/2024 I10 Essential (primary) hyperten AVIVA Guzmán Plan of Treatment Future Appointment(s):* 03/25/2025 8:00 am - Percy Cortes NP at Main Office 11/22/2024 - [facility] Fall* E10.3292 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, left eye * E78.00 Hypercholesterolemia * I10 Essential (primary) hypertension Functional Status Description No Information Available Mental Status Description No Information Available Referrals Refer to Dr Reason for Referral Status Appt Donovan e Philip Davenport Closed [address] [place] [address] [phone] [facility] Closed [address], [address] [place] [address] [phone] Kavita Finley M.D Closed [address] [place] [address] [phone] Gregory Kirby MD INGR[facility] Closed [address] [place] [address] [phone] Kavita Finley M.D Closed [address] [place] [address] [phone] Andres Eng M.D. Closed [address] [place] [id number] [phone]
[2024-12-09 10:17] VITALS: BP 131/66; PULSE 82; RESP 18; TEMP 36.2; O2SAT 98; BMI 31.3
== END 2024-12-09 09:40 | disposition home or self-care (01) ==
LOC: HO.MS 09:39
PROVIDERS: PCP Internal Medicine Endocrinology, Diabetes & Metabolism; Visit Provider Ophthalmology
PROC: (CPT 66821; principal; 2024-12-09 12:30)
DX: H26.492 Other secondary cataract, left eye (principal)
CPT/HCPCS: 66821